=== PATIENT | female | born 2000 | race Caucasian/White ===

== ENCOUNTER 2020-11-20 | Emergency (ER) | payer OTHER ==
[~2020-11-20] VITALS: Ht 157.5 cm; Wt 47.4 kg
[2020-11-20] MEDS ORDERED: IBUP-1114 PO (00:09)
[2020-11-20] MEDS ORDERED: KETOROLAC 30 MG/ML 1ML VIAL IV ONE (00:55)
[2020-11-20] MEDS ORDERED: NS 1,000 ML IV ONE (00:55)
[2020-11-20] MEDS ORDERED: METOCLOPRAMIDE INJ 10MG/2ML VIAL (J2765 PER 1) IV ONE (00:55)
[2020-11-20 01:12] LABS: BASO # 0.1 10^3/uL (0.0-0.2); BASO % 0.6 % (0.0-1.0); EOS # 0.1 10^3/uL (0.0-0.5); EOS % 1.7 % (0.0-3.0); HEMATOCRIT 39.1 % (36.0-47.0); HEMOGLOBIN 12.9 g/dl (12.0-15.5); LYMPH % 12.8 % (24.0-44.0); MEAN CORPUSCULAR HEMOGLOBIN 30.4 pg (27.0-33.0); MONO # 0.5 10^3/uL (0.0-0.8); MONO % 5.9 % (2.0-8.0); NEUTROPHILS # 6.3 10^3/uL (1.5-8.5); NEUTROPHILS % 78.6 % (36.0-66.0); PLATELET COUNT, AUTOMATED 185 10^3/uL (150-450); RED BLOOD COUNT 4.25 10^6/uL (4.00-5.40)
[2020-11-20] MEDS ORDERED: diphenhydrAMINE 50MG/ML VIAL (J1200) IV STA (01:25)
--- NOTE | 2020-11-20 01:58 | REPVR ---
PROCEDURE INFORMATION: Exam: XR Chest Exam date and time: 11/20/2020 1:12 AM Age: 19 years old Clinical indication: Shortness of breath; Additional info: BJ, maite TECHNIQUE: Imaging protocol: XR of the chest Views: 2 views. COMPARISON: No relevant prior studies available. FINDINGS: Lungs: Unremarkable. No consolidation. Pleural spaces: Unremarkable. No pleural effusion. No pneumothorax. Heart/Mediastinum: Unremarkable. No cardiomegaly. Bones/joints: Unremarkable. IMPRESSION: No acute findings. Electronically signed by: Eliceo Washington On 11/20/2020 01:58:17 AM
[2020-11-20 02:32] VITALS: BP 99/55
--- NOTE | 2020-11-20 08:04 | ECGEPIP ---
[facility] - ED Test Date: 2020-11-20 Pat Name: ALBA BONDS Department: Room: - Gender: Female [employer]formation [employer]: SIS : 2000 Requested By: BISHNU Walls PA-C Order Number: [id number] Reading MD: Steve Hill Measurements Intervals [place] Rate: 76 P: 82 OR: 126 QRS: 86 QRSD: 82 T: 50 QT: 370 QTc: 416 Interpretive Statements Normal sinus rhythm with sinus arrhythmia NO PRIORS FOR COMPARISON Electronically Signed on 11-20-2020 8:04:25 EDT by Steve Hill
== END 2020-11-20 02:36 | disposition home or self-care (01) ==
LOC: M ED
DX: R06.02 Shortness of breath (principal); R51.9 Headache, unspecified; T50.Z95A Adverse effect of other vaccines and biological substances, initial encounter
CPT/HCPCS: 71046; 80047; 82550; 85025; 85379; 93005; 96361; 96374; 96375; 99284; J1200; J1885; J2765

== ENCOUNTER 2022-04-13 19:22 | Emergency (ER) | payer OTHER ==
[~2022-04-13] VITALS: Ht 154.9 cm; Wt 45.5 kg
[~2022-04-13 19:22] MED LIST: IBUP-1114 PO
[2022-04-13] MEDS ORDERED: ZOLO100T PO (19:59)
[2022-04-13 22:07] LABS: BASO # 0.1 10^3/uL (0.0-0.2); BASO % 0.9 % (0.0-1.0); EOS # 0.3 10^3/uL (0.0-0.5); EOS % 3.8 % (0.0-3.0); HEMATOCRIT 39.2 % (36.0-47.0); HEMOGLOBIN 12.9 g/dl (12.0-15.5); LYMPH % 25.7 % (24.0-44.0); MEAN CORPUSCULAR HEMOGLOBIN 30.4 pg (27.0-33.0); MEAN CORPUSCULAR HGB CONC 32.9 g/dl (32.0-36.5); MEAN CORPUSCULAR VOLUME 92.2 fl (80.0-96.0); MONO # 0.8 10^3/uL (0.0-0.8); MONO % 9.7 % (2.0-8.0); NEUTROPHILS # 4.6 10^3/uL (1.5-8.5); NEUTROPHILS % 59.6 % (36.0-66.0); PLATELET COUNT, AUTOMATED 215 10^3/uL (150-450); RED BLOOD COUNT 4.25 10^6/uL (4.00-5.40); WHITE BLOOD COUNT 7.7 10^3/uL (4.0-10.0)
[2022-04-13 23:10] LABS: APPEARANCE, URINE MANUAL CLEAR (CLEAR); COLOR, URINE MANUAL LT YELLOW (YELLOW)
[2022-04-13 23:12] LABS: BILIRUBIN, URINE MANUAL NEGATIVE (NEGATIVE); BLOOD URINE MANUAL POSITIVE (NEGATIVE); GLUCOSE, URINE (UA) MANUAL NEGATIVE (NEGATIVE); KETONE, URINE MANUAL NEGATIVE (NEGATIVE); NITRITE, URINE MANUAL NEGATIVE (NEGATIVE); UROBILINOGEN, URINE MANUAL NORMAL (NORMAL)
[2022-04-13 23:15] VITALS: BP 109/50
[2022-04-13 23:17] LABS: LEUKOCYTE ESTERASE, URINE MAN TRACE (NEGATIVE); PROTEIN, URINE MANUAL TRACE mg/dL (NEGATIVE)
[2022-04-13 23:22] LABS: BACTERIA, URINE SMALL AMOUNT; SQUAMOUS EPITHELIAL CELL URINE SMALL AMOUNT /hpf (SMALL AMT)
[2022-04-13 23:23] LABS: HYALINE CAST, URINE NONE SEEN /lpf (0-1); MUCUS, URINE SMALL AMOUNT (NEGATIVE)
== END 2022-04-13 23:16 | disposition home or self-care (01) ==
LOC: M ED 19:22
DX: N94.6 Dysmenorrhea, unspecified (principal); N92.0 Excessive and frequent menstruation with regular cycle; J02.9 Acute pharyngitis, unspecified; R51.9 Headache, unspecified

== ENCOUNTER → 2022-10-02 | Outpatient (CLI) | payer OTHER ==
[~2022-10-02] MED LIST changes: +ZOLO100T PO
== END ==
LOC: M PLARAD 12:40
PROVIDERS: ATTEND Physician Assistant
DX: M54.50 Low back pain, unspecified (principal)